=== PATIENT | male | born 2000 | race Caucasian/White ===

== ENCOUNTER 2021-10-09 12:24 | Emergency (ER) | payer MEDICARE, SELFPAY ==
[2021-10-09 12:25] VITALS: BP 144/90; PULSE 107; RESP 18; TEMP 36.3; O2SAT 97; BMI 28.5
--- NOTE | 2021-10-09 16:01 | EX.ED.DYSGE1 ---
HPI History of Present Illness Chief Complaint: General Illness Informant: patient Narrative Narrative: Patient is a 21-year-old male presented with 1 week of cold-like symptoms. Patient has had runny nose, sore throat, night sweats, loss of taste and smell and nasal congestion for the past week. He is not feeling better today so he thought he be seen by a professional. He is been taking DayQuil at home with no relief of his symptoms. His uncle's been sick at home and he is also to coworkers that were diagnosed with Covid 2 weeks ago. He has not had his Covid vaccine. Denies any fever, chest pain or difficulty breathing. No other complaints at this time. Last had medicine around noon. [facility] Home Medications NK 09/13/17 [History Last Taken Unknown] Allergy/AdvReac Type Severity Reaction Status Date / Time No Known Allergies Allergy Verified 10/09/21 12:27 Social History Smoking Status: Never smoker [facility] ED Constitutional Constitutional ED: Denies chills or fever(s) Eyes Eyes: Denies change in vision ENT ENT ED: Reports rhinorrhea, sore throat and other Details: nasal congestion ; Denies ear pain Cardiovascular Cardiovascular: Denies chest pain Respiratory/Chest Respiratory/Chest: Denies cough, dyspnea, dyspnea on exertion or sputum Gastrointestinal Gastrointestinal: Denies abdominal pain, diarrhea, nausea or vomiting Genitourinary Genitourinary ED: Denies dysuria or hematuria Musculoskeletal Musculoskeletal: Denies arthralgias or myalgias Integumentary Denies rash Neurologic Neurologic: Denies headache(s) or weakness Psychiatric Psychiatric: Denies anxiety or depression EXAM Physical Exam Const Vital Signs: 10/09/21 12:25 10/09/21 15:55 Temperature 97.3 F L Temperature Source Temporal Pulse Rate 107 H Respiratory Rate 18 Respiratory Effort Normal Respiratory Pattern Normal Blood Pressure 144/90 H Blood Pressure Mean 108 Pulse Ox 97 Oxygen Delivery Method Room Air Positive well nourished and well developed General Appearance ED: well developed HEENT Reports TM's clear and moist mucous membranes HEENT Narrative: Mild erythema all injection of the oropharynx. Normal tonsils appreciated. Negative for trauma Tympanic Membrane ED: Yes TM's clear Eyes PERRL and EOMs intact bilaterally Eyes Narrative: No discharge appreciated Neck no lymphadenopathy and supple Chest Wall inspection of chest normal Resp normal respiratory effort Auscultation: diminished lung sounds bilateral lower; Negative for rales or wheezes Cardio regular rate, regular rhythm and no murmurs GI normal to inspection, nondistended, normoactive bowel sounds and non-tender Palpation: soft Back/Spine no CVA tenderness Extremity normal to inspection Neuro oriented x3 and CN's II-XII intact bilaterally Sensorium / Orientation: alert Motor Exam: strength 5/5 throughout Psych mental status grossly normal Skin no rashes or lesions noted MDM MDM MDM Narrative Medical decision making narrative: Patient evaluated for 1 week of Covid-like symptoms. His Covid test is positive. He is overall well-appearing. He is given a dose of Motrin in the ER. Is instructed start taking Mucinex D to help with his symptoms. He is counseled on quarantine precautions. Is given a note for work. Counseled on return precautions including increased work of breathing, fever or worsening symptoms. Overall patient is very well-appearing. Lab Data Attestation: I reviewed the patient's lab results. Discharge Plan Triage Chief Complaint: General Illness ED Provider: Guera Brown Dx/Rx/DC Orders Clinical Impression: COVID-19 virus infection Instructions: Coronavirus Disease 2019 (COVID-19): Overview Prescriptions: No Action NK RF: 0 Referrals: Scott Heath MD [STAFF PHYSICIAN] - Activity Restrictions/Additional Instructions: Your Covid test is positive. You need to quarantine from 10 days onset of symptoms. Take Mucinex DM to help with your congestion and symptoms. Drink lots of fluids. You may also alternate Tylenol and ibuprofen. Disposition Disposition: Home, Self Care
== END 2021-10-09 16:32 | disposition home or self-care (01) ==
LOC: ED 16:27
PROVIDERS: Emergency Provider Emergency Medicine; Visit Provider Emergency Medicine
DX: U07.1 COVID-19 (principal)
CPT/HCPCS: 87426; 99282